=== PATIENT | male | born 1980 | race Caucasian/White ===

== ENCOUNTER 2017-07-20 09:54 | Emergency (ER) | payer OTHER ==
[~2017-07-20] VITALS: Ht 182.9 cm; Wt 93.0 kg
[~2017-07-20 09:54] MED LIST: CLON2TAB PO; FLUO-1 PO; IBUP800T23 PO; LAMO150 PO
[2017-07-20 10:02] VITALS: BP 130/94; PULSE 81; RESP 18; TEMP 98.1; O2SAT 96
[2017-07-20] MEDS ORDERED: IBUP1TAB7 PO (10:24)
[2017-07-20] MEDS ORDERED: CLON1TAB PO (10:24)
[2017-07-20] MEDS ORDERED: ACETAMINOPHEN/HYDROcodone 325 MG/5 MG TAB PO ONE (10:45)
[2017-07-20] MEDS ORDERED: TRAM50TA PO (10:49)
[2017-07-20] MEDS ORDERED: CEPH-460 PO (10:49)
--- NOTE | 2017-07-20 10:49 | PD ---
HPI Chief Complaint: Fall Time Seen by Provider: 10:33 Travel History International Travel<30 days: No Contact w/Intl Traveler<30days: No Traveled to known affect area: No History of Present Illness HPI 36-year-old now presents to the emergency department for evaluation after a trip and fall that occurred just prior to arrival. Patient states that he is a wounded . She reports chronic numbness to the bilateral lower extremities for several years. He states that this morning, he is walking his child to the bus stop when his leg gave out and he fell forward. He hit his face, but denies hitting his head or any LOC. He denies any neck pain or back pain. No chest pain or abdominal pain. No nausea, vomiting, diarrhea. He has been ambulatory since the fall. He complains of abrasions to his right cheek, right chin, right hand, bilateral knees, bilateral feet. He denies any bony pain. Patient states his tetanus immunization was within the past 2 years. He takes ibuprofen and clonazepam at home. He has no other prescribed medications. He denies any other complaints at this time. Severity is moderate. No exacerbating or alleviating factors. No radiation of pain. PFSH Past Medical History Bipolar Disorder: Yes Anxiety: Yes Depression: Yes Diminished Hearing: No Musculoskeletal: Yes Neurologic: Yes ("NERVE DAMAGE LEGS") Immunizations Current: No Social History Alcohol Use: No (COUPLE TIMES PER WEEK) Tobacco Use: Yes (1/2 PPD- trying to quit) Substance Use: No Allergies-Medications (Allergen,Severity, Reaction): Coded Allergies: No Known Allergies (Unverified Adverse Reaction, Unknown, 07/20/17) Reported Meds & Prescriptions Reported Meds & Active Scripts Active Reported Ibuprofen 800 Mg Tab 800 Mg PO Q8H PRN Clonazepam 1 Mg Tab 1 Mg PO TID Review of Systems Except as stated in HPI: all other systems reviewed are Neg Physical Exam Narrative GENERAL: Well-nourished, well-developed male patient, ambulatory. Afebrile. SKIN: Focused skin assessment warm/dry. Patient has abrasion to right cheek, right chin, right volar hand, bilateral anterior knees, right distal great toe, left dorsal foot. No lacerations. HEAD: Normocephalic. ENT: Mucosa pink and moist. No erythema or exudates. No uvular edema. No uvular , palatal, or tonsillar deviation. Airway patent. Nasal turbinates appear normal without nasal blood, purulent drainage or septal hematoma. Bilateral tympanic membranes are clear without erythema or perforation. EYES: No scleral icterus. No injection or drainage. PERRLA. NECK: Supple, trachea midline. No JVD or lymphadenopathy. CARDIOVASCULAR: Regular rate and rhythm without murmurs, gallops, or rubs. Bilateral radial and pedal pulses are 2+. RESPIRATORY: Breath sounds equal bilaterally. No accessory muscle use. Lungs sounds are clear to auscultation. GASTROINTESTINAL: Abdomen soft, non-tender, nondistended. MUSCULOSKELETAL: No cyanosis, or edema. Patient has no bony point tenderness. He has full range of motion of all joints. BACK: Nontender without obvious deformity. No CVA tenderness. No midline spinal tenderness. He has full rotation cervical spine without pain or stiffness. Data Data Last Documented VS Vital Signs Date Time Temp Pulse Resp B/P (MAP) Pulse Ox O2 Delivery O2 Flow Rate FiO2 07/20/17 10:02 98.1 81 18 130/94 (106) 96 Orders Orders Acetamin-Hydrocod 325-5 Mg (Elfrida 5-325 (07/20/17 10:45) Wound Care (07/20/17 10:43) MDM Medical Decision Making Medical Screen Exam Complete: Yes Emergency Medical Condition: Yes Medical Record Reviewed: Yes Differential Diagnosis Abrasion versus contusion versus fracture versus dislocation Narrative Course 36-year-old male patient presents to the emergency department for evaluation after a fall that occurred today. Patient has multiple abrasions. He has no bony point tenderness on exam with full range of motion. Patient states that he does not feel like he needs any x-rays which I agree. He denies any head injury or LOC. Abrasions are cleaned and antibiotic ointment is applied. Patient is given Lortab 5/325 mg by mouth in the emergency department. His tetanus immunization is up-to-date. He'll be discharged a short-term prescription for tramadol for pain and Keflex for prophylaxis. He verbalizes agreement and understanding. He is instructed on proper wound care. The patient was discharged in stable condition with instructions, including return instructions and follow up instructions. Diagnosis Primary Impression: Abrasion, multiple sites Referrals: Primary Care Physician call for appointment Patient Instructions: Abrasion (ED), General Instructions Additional Instructions: Clean abrasions twice daily with soap and water and apply [id number] antibiotic ointment. Take Keflex, antibiotic, as directed until gone to prevent infection. Take tramadol as directed as needed for pain. Caution this can make you drowsy so do not drive after taking. Follow-up with your primary care physician. Return to the emergency department for any acute worsening of symptoms. Med/Other Pt SpecificInfo: Prescription(s) given Scripts Cephalexin (Keflex) 500 Mg Cap 500 MG PO Q8H for Infection for 7 Days, #21 CAP 0 Refills Prov: Carol Hill 07/20/17 Tramadol (Tramadol) 50 Mg Tab 50 MG PO Q6H Y for PAIN, #12 TAB 0 Refills Prov: Carol Hill 07/20/17 Disposition: 01 DISCHARGE HOME Condition: Stable Carol Hill Jul 20, 2017 10:49
== END 2017-07-20 11:41 | disposition home or self-care (01) ==
LOC: PHED 09:54
DX: S00.81XA Abrasion of other part of head, initial encounter (principal); S60.511A Abrasion of right hand, initial encounter; S80.212A Abrasion, left knee, initial encounter; S80.211A Abrasion, right knee, initial encounter; S90.812A Abrasion, left foot, initial encounter; S90.811A Abrasion, right foot, initial encounter; R20.0 Anesthesia of skin; W01.198A Fall on same level from slipping, tripping and stumbling with subsequent striking against other object, initial encounter; Y93.01 Activity, walking, marching and hiking; Z72.0 Tobacco use
CPT/HCPCS: 99284

== ENCOUNTER 2017-09-22 10:27 | Emergency (ER) | payer OTHER ==
[~2017-09-22] VITALS: Ht 180.3 cm; Wt 89.2 kg
[~2017-09-22 10:27] MED LIST changes: +CEPH-460 PO; +CLON1TAB PO; -CLON2TAB PO; -FLUO-1 PO; +IBUP1TAB7 PO; -IBUP800T23 PO; -LAMO150 PO; +TRAM50TA PO
[2017-09-22 10:57] VITALS: BP 124/85; PULSE 83; RESP 18; TEMP 98.3; O2SAT 96
[2017-09-22] MEDS ORDERED: FLUO60TA PO (11:25)
--- NOTE | 2017-09-22 11:36 | PD ---
HPI Chief Complaint: Musculoskeletal Complaint Time Seen by Provider: 11:28 Travel History International Travel<30 days: No Contact w/Intl Traveler<30days: No Traveled to known affect area: No History of Present Illness HPI 36-year-old male presents for evaluation of left-sided rib cage pain. He reports over the past week he's had a cough with productive clear sputum. Since yesterday he has had pain in his left side chest wall which she says feels muscular and is reproduced when coughing. Today during a particularly bad coughing spell he developed increased pain in the left lateral rib cage which is sharp, worse with inspiration, palpation, movement, coughing. He denies any shortness of breath. He denies abdominal pain, nausea, vomiting, fevers, chills, diarrhea. He has no other complaints at this time. PFSH Past Medical History Bipolar Disorder: Yes Anxiety: Yes Depression: Yes Diminished Hearing: No Musculoskeletal: Yes Neurologic: Yes ("NERVE DAMAGE LEGS") Immunizations Current: No Influenza Vaccination: No Social History Alcohol Use: Yes (COUPLE TIMES PER WEEK) Tobacco Use: Yes (08/25 PPD) Substance Use: No Allergies-Medications (Allergen,Severity, Reaction): Coded Allergies: No Known Allergies (Unverified Adverse Reaction, Unknown, 09/22/17) Reported Meds & Prescriptions Reported Meds & Active Scripts Active Azithromycin 250 Mg Tab 250 Mg PO DIRECTED Take 2 tabs (500 mg) on day 1 then 1 tab daily x 4 days. Tessalon Perles (Benzonatate) 100 Mg Cap 200 Mg PO TID PRN Lidocaine Patch 12 HR (Lidocaine) 5 % Patch 1 Patch TOPICAL DAILY PRN Remove patch after 12 hours Ibuprofen 800 Mg Tab 800 Mg PO Q6HR PRN Reported Fluoxetine (Fluoxetine HCl) 60 Mg Tab 60 Mg PO DAILY Ibuprofen 800 Mg Tab 800 Mg PO Q8H PRN Clonazepam 1 Mg Tab 1 Mg PO TID Review of Systems Except as stated in HPI: all other systems reviewed are Neg Physical Exam Narrative GENERAL: Well-developed well-nourished male in no acute distress SKIN: Warm and dry. No rash, no ecchymosis. HEAD: Atraumatic. Normocephalic. EYES: Pupils equal and round. No scleral icterus. No injection or drainage. ENT: No nasal bleeding or discharge. Mucous membranes pink and moist. NECK: Trachea midline. No JVD. CARDIOVASCULAR: Regular rate and rhythm. No murmur appreciated. RESPIRATORY: No accessory muscle use. Clear to auscultation. Breath sounds equal bilaterally. GASTROINTESTINAL: Abdomen soft, non-tender, nondistended. Hepatic and splenic margins not palpable. MUSCULOSKELETAL: No obvious deformities. Tender to palpation to the left lateral and posterior rib cage. No edema. NEUROLOGICAL: Awake and alert. No obvious cranial nerve deficits. Motor grossly within normal limits. Normal speech. PSYCHIATRIC: Appropriate mood and affect; insight and judgment normal. Data Data Last Documented VS Vital Signs Date Time Temp Pulse Resp B/P (MAP) Pulse Ox O2 Delivery O2 Flow Rate FiO2 09/22/17 10:57 98.3 83 18 124/85 (98) 96 Orders Orders Chest, Pa & Lat (09/22/17 ) Ketorolac Inj (Toradol Inj) (09/22/17 11:45) Orphenadrine Inj (Norflex Inj) (09/22/17 11:45) Ed Discharge Order (09/22/17 12:31) [facility] Medical Decision Making Medical Screen Exam Complete: Yes Emergency Medical Condition: Yes Medical Record Reviewed: Yes Differential Diagnosis Rib Contusion, costochondritis, pleurisy, pneumothorax, fracture, pericarditis, myocarditis, pneumonia, pulmonary embolism Narrative Course 36-year-old male with productive cough for 1 week, left-sided rib cage pain worsening today after a particularly forceful coughing episode. On examination he has reproducible musculoskeletal left-sided chest wall pain. Chest x-ray was ordered revealing no acute abnormality. He was given Toradol and Norflex here with some symptom improvement. The patient will be discharged with analgesics, azithromycin, Tessalon. Diagnosis Primary Impression: Bronchitis Additional Impression: Chest wall pain Additional Instructions: Medication as prescribed. Stay well-hydrated and well-nourished. return for any emergent medical conditions. Med/Other Pt SpecificInfo: Prescription(s) given Scripts Azithromycin (Azithromycin) 250 Mg Tab 250 MG PO DIRECTED for Infection, #6 TAB 0 Refills Take 2 tabs (500 mg) on day 1 then 1 tab daily x 4 days. Prov: Saul Martin MD 09/22/17 Benzonatate (Tessalon Perles) 100 Mg Cap 200 MG PO TID Y for COUGH, #30 CAP 0 Refills Prov: Saul Martin MD 09/22/17 Lidocaine Patch 12 HR (Lidocaine Patch 12 HR) 5 % Patch 1 PATCH TOPICAL DAILY Y for PAIN, #1 BOX 0 Refills Remove patch after 12 hours Prov: Saul Martin MD 09/22/17 Ibuprofen (Ibuprofen) 800 Mg Tab 800 MG PO Q6HR Y for PAIN, #40 TAB 0 Refills Prov: Saul Martin MD 09/22/17 Disposition: 01 DISCHARGE HOME Condition: Stable Deangelo Qiu Sep 22, 2017 11:36
[2017-09-22] MEDS ORDERED: ORPHENADRINE INJ 60 MG/2 ML AMP IM ONE (11:45)
[2017-09-22] MEDS ORDERED: KETOROLAC TROMETHAMINE 60 MG/2 ML (IM) VIAL IM ONE (11:45)
--- NOTE | 2017-09-22 12:04 | RADRPT ---
EXAM DATE/TIME: 09/22/2017 11:53 [facility] COMPARISON: CHEST SINGLE AP, May 06, 2016, 19:20. INDICATIONS : Cough for 1 week. Left lower chest pain today. MEDICAL HISTORY : None. SURGICAL HISTORY : None. ENCOUNTER: Initial ACUITY: 1 week PAIN SCORE: 8/10 LOCATION: Left lower chest FINDINGS: PA and lateral views of the chest demonstrate the lungs to be symmetrically aerated without evidence of mass, infiltrate or effusion. The cardiomediastinal contours are unremarkable. Osseous structure s are intact. CONCLUSION: No acute disease. No significant change has occurred. Augustine Moya MD on September 22, 2017 at 12:01 Board Certified Radiologist. This report was verified electronically.
[2017-09-22] MEDS ORDERED: BENZ100 PO (12:32)
[2017-09-22] MEDS ORDERED: AZIT250T3 PO (12:32)
[2017-09-22] MEDS ORDERED: LIDO1PAD52 TOPICAL (12:32)
[2017-09-22] MEDS ORDERED: IBUP1TAB7 PO (12:32)
== END 2017-09-22 12:47 | disposition home or self-care (01) ==
LOC: PHEFT 10:27
DX: J40 Bronchitis, not specified as acute or chronic (principal); R07.89 Other chest pain; R05 Cough; Z72.0 Tobacco use
CPT/HCPCS: 71046; 96372; 99284; J1885; J2360